=== PATIENT | female | born 1990 | race Caucasian/White ===

== ENCOUNTER 2018-11-11 08:14 | Outpatient (CLI) | payer OTHER | END 2018-11-11 21:04 | disposition home or self-care (01) | LOC: SUS 08:14 | PROVIDERS: ATTEND General Practice | DX: M25.561 Pain in right knee (principal) ==

== ENCOUNTER 2018-12-15 20:24 | Outpatient (CLI) | payer OTHER ==
[2018-12-15 21:38] LABS: HEMOGLOBIN 13.8 g/dL (12.0-16.0); MEAN CORPUSCULAR HEMOGLOBIN 29 pg (27-31); MEAN CORPUSCULAR HGB CONC 34 % (32-36); MEAN CORPUSCULAR VOLUME 85 fL (79.0-98.0); PLATELET COUNT (AUTO) 367 K/uL (130-430); RED BLOOD CELL COUNT(AUTO) 4.81 MIL/uL (4.2-6.2); RED CELL DISTRIBUTION WIDTH 13.2 % (9.0-15.0); WHITE BLOOD COUNT (AUTO) 10.9 K/uL (4.8-10.8)
[2018-12-15 22:10] LABS: ALBUMIN 4.3 g/dL (3.4-4.8); CALCIUM 9.8 mg/dL (8.4-11.0); CREATININE 0.79 mg/dL (0.55-1.30); POTASSIUM 3.6 mmol/L (3.5-5.1); THYROID STIMULATING HORMONE 1.34 uIu/mL (0.34-4.82); TOTAL BILIRUBIN 0.5 mg/dL (0.0-1.0)
== END 2018-12-15 20:55 | disposition home or self-care (01) ==
LOC: SLB 20:24
PROVIDERS: ATTEND General Practice
DX: Z00.00 Encounter for general adult medical examination without abnormal findings (principal)
CPT/HCPCS: 36415; 80053; 80061; 82306; 83051; 84443-TC; 85014-TC; 85048; 85049-TC

== ENCOUNTER 2019-04-29 16:25 | Outpatient (CLI) | payer OTHER | END 2019-04-29 21:12 | disposition home or self-care (01) | LOC: SLB 16:25 | PROVIDERS: ATTEND Family Medicine | DX: Z01.84 Encounter for antibody response examination (principal) | CPT/HCPCS: 36415; 86735; 86762; 86765; 86787; 87340 ==

== ENCOUNTER 2019-05-07 10:08 | Outpatient (CLI) | payer OTHER | END 2019-05-07 21:13 | disposition home or self-care (01) | LOC: SLB 10:08 | PROVIDERS: ATTEND Family Medicine | DX: Z01.84 Encounter for antibody response examination (principal) | CPT/HCPCS: 36415; 86706 ==

== ENCOUNTER 2020-07-03 18:28 | Emergency (ER) | payer OTHER ==
[~2020-07-03] VITALS: Ht 170.2 cm; Wt 80.7 kg
[2020-07-03 19:20] VITALS: BP_SYST 111
--- NOTE | 2020-07-03 19:30 | NUR ---
Pt presents to ER c/o L foot pain x today. Pt reports walking her dog and being pulled by dog causing her to fall. Pt reports hearing a pop when she fell. Pt denies pain at rest, pain only when placing weight on the foot 12/01. Pt took ibuprofen 800mg at home for the pain. Pt reports pain and swelling to L lateral side of foot. Denies head injury, LOC. Denies allergies to medication.
--- NOTE | 2020-07-03 20:05 | NUR ---
SHAAN Ann examining patient.
[2020-07-03] MEDS ORDERED: HYDROcodone/ACETAMIN 5-325 MG TAB (NORCO/ VICODIN) PO ONE (21:30)
[2020-07-03] MEDS ORDERED: HYDROcodone/ACETAMIN 5-325 MG TAB (NORCO/ VICODIN) ONE (21:41)
[2020-07-03 21:56] VITALS: BP_SYST 115
--- NOTE | 2020-07-03 21:56 | NUR ---
Patient given written and verbal discharge instructions and verbalizes understanding. ER MD discussed with patient the results and treatment provided. Patient in stable condition. ID arm band removed. Rx of Ibuprofen 800 mg and [place] given. Patient educated on pain management and to follow up with PMD. Pain Scale 3/10. Opportunity for questions provided and answered. Xray disc was given to patient
== END 2020-07-03 21:56 | disposition home or self-care (01) ==
LOC: SED 18:28
DX: M79.672 Pain in left foot (principal); W18.39XA Other fall on same level, initial encounter; Y93.89 Activity, other specified; Y92.89 Other specified places as the place of occurrence of the external cause; Y99.8 Other external cause status
CPT/HCPCS: 99283

== ENCOUNTER 2020-08-03 12:57 | Outpatient (CLI) | payer OTHER | END 2020-08-03 20:18 | disposition home or self-care (01) | LOC: SRD 12:57 | DX: S92.352A Displaced fracture of fifth metatarsal bone, left foot, initial encounter for closed fracture (principal); X58.XXXA Exposure to other specified factors, initial encounter; Y93.89 Activity, other specified; Y92.89 Other specified places as the place of occurrence of the external cause; Y99.8 Other external cause status ==